=== PATIENT | female | born 1970 | race Caucasian/White ===

== ENCOUNTER 2017-09-24 14:32 | Emergency (ER) | payer BC, MEDICARE ==
[2017-09-24 14:52] VITALS: TEMP 99.2
--- NOTE | 2017-09-24 15:08 | ED.PDOC ---
History of Present Illness - General Chief Complaint: Lower Extremity Injury Stated Complaint: Left foot injury Time Seen by Provider: 09/24/17 15:05 Source: patient - History of Present Illness Initial Comments: INJURED THE LEFT FOOT, NOW C/O PAIN TO THE LEFT FIFTH TOE. Occurred: just prior to arrival Pain - Lower Extremity: moderate: Left Foot Method of Injury: twisted Improving Factors: immobilization Worsening Factors: movement Allergies/Adverse Reactions: Allergies NO KNOWN ALLERGY Allergy (Verified 11/11/13 10:19) Home Medications: Ambulatory Orders Tramadol HCl 50 mg PO Q6HRS #20 tab 09/24/17 Review of Systems - Review of Systems Constitutional: States: no symptoms reported EENTM: States: no symptoms reported Respiratory: States: no symptoms reported Cardiology: States: no symptoms reported Gastrointestinal/Abdominal: States: no symptoms reported Genitourinary: States: no symptoms reported Musculoskeletal: States: joint pain, joint swelling Skin: States: no symptoms reported Neurological: States: no symptoms reported Endocrine: States: no symptoms reported Hematologic/Lymphatic: States: no symptoms reported Past Medical History (General) - Patient Medical History Hx Seizures: No Hx Stroke: No Hx Dementia: No Hx Asthma: No Hx of COPD: No Hx Cardiac Disorders: No Hx Congestive Heart Failure: No Hx Pacemaker: No Hx Hypertension: No Hx Thyroid Disease: No Hx Diabetes: No Hx Gastroesophageal Reflux: No Hx Renal Disease: - Hx of kidney stones x 1 Hx Cancer: No Hx of HIV: No Hx Hepatitis C: No Hx MRSA: No - Vaccination History Hx Tetanus, Diphtheria Vaccination: No Hx Influenza Vaccination: No Hx Pneumococcal Vaccination: No - Social History Hx Tobacco Use: No Hx Chewing Tobacco Use: No Hx Alcohol Use: No Hx Substance Use: No Hx Substance Use Treatment: No Hx Depression: No Hx Physical Abuse: No Hx Emotional Abuse: No Hx Suspected Abuse: No - Female History Patient is a Female of Child Bearing Age (10 -59 yrs old): Yes - Pt has not had any menses since cervical ablation Patient : No Family Medical History - Family History Mother Living Status: Hx Family Cancer: Yes Hx Family;Other: muscular dystrophy, cancer; lymphoma, thyroid, RA Physical Exam - Physical Exam General Appearance: Alert, Well Developed, Well Groomed Eyes, Ears, Nose, Throat: PERRL/EOMI Neck: non-tender Cardiovascular/Respiratory: regular rate, rhythm, normal peripheral pulses, no JVD, normal breath sounds Gastrointestinal/Abdominal: non-tender, no organomegaly Back: normal inspection, no CVA tenderness, no vertebral tenderness Thigh/Hip: non-tender Leg: normal inspection Knee: normal inspection Ankle: normal inspection Foot: ecchymosis - TO THE LEFT FIFTH TOE Neuro/Tendon: normal motor functions Mental Status: alert, oriented x 3 Skin: normal color Progress - Results/Orders Results/Orders: my preliminary report of the foot x-ray: THE IS A FRACTURE OF THE PROXIMAL PHALANX OF THE LEFT 5TH TOE-MINIMALLY DISPLACED, CLOSED Departure - Departure Clinical Impression: Fracture of toe of left foot Qualifiers: Encounter type: initial encounter Toe: lesser toe Fracture type: closed Phalanx : proximal Fracture alignment: nondisplaced Qualified Code(s): S92.515A - Nondisplaced fracture of proximal phalanx of left lesser toe(s), initial encounter for closed fracture Time of Disposition: 15:42 Disposition: Discharge to Home or Self Care Condition: Good Departure Forms: ED Discharge - Pt. Copy, Patient Portal Self Enrollment Instructions: DI for Leg Pain, Toe Fracture (DC) Diet: resume usual diet Activity: increase activity as tolerated Referrals: Mnan Romeo MD [Primary Care Provider] - 1-2 Weeks Prescriptions: Tramadol HCl 50 mg PO Q6HRS #20 tab Home Medications: Ambulatory Orders Tramadol HCl 50 mg PO Q6HRS #20 tab 09/24/17
--- NOTE | 2017-09-24 15:46 | RAD ---
PROCEDURE: Foot,Left 3 Views CLINICAL HISTORY: INJURED LEFT FOOT INDICATION: Same as above COMPARISON: None . TECHNIQUE: Three Views of the left foot were done. FINDINGS: There is a nondisplaced fracture through the mid diaphysis of the proximal phalanx of the left fifth toe. There is a small plantar calcaneal spur The joint spaces are relatively well-maintained. There is no evidence of bony tarsal coalition. The soft tissues are radiographically unremarkable. There is no visualization of any radiopaque foreign bodies in the visualized soft tissues. IMPRESSION: There is a nondisplaced fracture through the mid diaphysis of the proximal phalanx of the left fifth toe. Place of interpretation: [id number]. Electronically signed by: Adal George MD 09/24/2017 3:45 PM CDT Workstation: [id number]
[2017-09-24 16:19] VITALS: BP 123/85; O2SAT 96
== END 2017-09-24 15:39 | disposition home or self-care (01) ==
LOC: ER 14:32
DX: S92.515A Nondisplaced fracture of proximal phalanx of left lesser toe(s), initial encounter for closed fracture (principal); X50.1XXA Overexertion from prolonged static or awkward postures, initial encounter; Y92.9 Unspecified place or not applicable; Y93.H2 Activity, gardening and landscaping

== ENCOUNTER → 2017-10-30 | Outpatient (CLI) | payer MEDICARE | LOC: GMAM 17:24 | PROVIDERS: ATTEND Family Medicine | DX: R10.84 Generalized abdominal pain (principal) ==

== ENCOUNTER → 2017-11-01 | Outpatient (CLI) | payer MEDICARE ==
--- NOTE | 2017-11-01 11:33 | CT ---
EXAM DESCRIPTION: Abdomen/Pelvis w/Contrast: Computed Tomography. CLINICAL HISTORY: GENERALIZED ABD PAIN COMPARISON: None. TECHNIQUE: Spiral-axial scans at 5 x 5 mm intervals through the abdomen and pelvis, after nonionic IV contrast no oral contrast. Axial 2.5 mm reconstructions. Coronal and sagittal 2.0 mm reconstructions. Delayed scans, liver through the pelvis. Axial-spiral 5mm. No adverse reactions. Total Exam DLP: 2461.08 mGy-cm. This exam was performed according to our departmental dose-optimization program which includes automated exposure control, adjustment of the mA and/or kV according to patient size and/or use of iterative reconstruction technique; to reduce radiation dose to as low as reasonably achievable (ALARA). FINDINGS: Lung bases and pleura: Negative. Liver, Stomach, Spleen, Adrenal Glands: Unremarkable. Pancreas, Gallbladder, Ducts: Negative. Kidneys and Ureters: Unremarkable. Aorta: Negative. Small Bowel: Unremarkable. Terminal Ileum/Cecum: Minimal low density and enhancement of the cecal gomes which may represent edema. Normal caliber of the terminal ileum and the appendix. Minimal increased density of the fat abutting the serosa of the cecum. Colon: The colon appears diffusely decreased in caliber with low-density seen in the gomes in most of the colonic segments with minimal enhancement of the lumen and the outer wall and serosa. Interface of the serosa and the mesentery is somewhat indistinct with increased density of the mesentery. The involved colon segments are uniformly decreased and cross-sectional diameter with decreased haustral markings. The abnormality in the colonic gomes terminates in the proximal sigmoid colon which demonstrates more gaseous distention and variability of the outer gomes. Pelvic Organs: No free fluid. Mesentery: No stranding or fascial thickening except as described above. No free air or fluid. Spine and Bony Pelvis: Anterior aspect of the superior L4 endplate is displaced anteriorly. Foraminal narrowing bilaterally L5-S1 and on the left at L4-5. Calcification and hypertrophy of the soft tissues abutting the bilateral L3 lamina posterior to the bilateral L3-4 facets. Abdominal Wall/Back Soft Tissues: Minimal fatty diastases at the umbilicus. IMPRESSION: 1. Diffuse edema involving most segments of the colon from the cecum to the proximal sigmoid colon. Overall caliber of the colon is decreased in the abnormally uniformly decreased haustral markings. Indistinctness of the outer serosa and minimal loss of inner facet with the surrounding mesentery with minimal stranding. This indicates a diffuse colonic inflammatory process, nonspecific, but can be seen with ulcerative colitis. No colonic or small bowel obstruction. Consider gastroenterology consult and/or colonoscopy. 2. Changes in the anterior L4 vertebral body and posterior calcifications around the L3-4 facets as described could indicate a prior hyperextension injury of the lumbar spine at this level. 3. No free air or free fluid. No ascites. No abscess cavities. No organomegaly. Electronically signed by: Olvin Beyer MD 11/01/2017 11:32 AM CDT
== END ==
LOC: CT 08:23
PROVIDERS: ATTEND Family Medicine
DX: R10.84 Generalized abdominal pain (principal)

== ENCOUNTER → 2017-11-06 | Outpatient (CLI) | payer MEDICARE | LOC: GMAM 16:11 | PROVIDERS: ATTEND Family Medicine | DX: R31.21 Asymptomatic microscopic hematuria (principal) ==

== ENCOUNTER 2018-01-10 08:00 | Day surgery (SDC) | payer MEDICARE ==
[~2018-01-10 08:00] MED LIST: LACTATED RINGERS 1,000 ML ONE; LIDOCAINE 1% 10 ML VIAL INJ ONE; PROPOFOL 200 MG/20 ML VIAL IV ONE; fentaNYL CITRATE INJ 50 MCG/ML AMP ONE
--- NOTE | 2018-01-10 08:54 | OP ---
DATE OF PROCEDURE: 01/10/18 PREOPERATIVE DIAGNOSIS: 1. Abnormal imaging of the gastrointestinal tract. 2. Left lower quadrant abdominal pain. POSTOPERATIVE DIAGNOSIS: 1. Sigmoid colon diverticulosis. PROCEDURE: 1. Colonoscopy, diagnostic. SURGEON: Earl Vidal MD ANESTHESIA: Monitored anesthesia care. ESTIMATED BLOOD LOSS: Less than 5 mL. COMPLICATIONS: No immediate complications. PROCEDURE: The patient was placed in the left lateral decubitus position. A time-out was performed. After deep sedation was achieved, the adult Olympus colonoscope was inserted through the anus and into the rectum and advanced to the cecum with ease under direct visualization. The terminal ileum was intubated. The cecum was identified by the ileocecal valve and the appendiceal orifice, photodocumentation of these locations was performed. The endoscope was then progressively withdrawn and the total colonic lumen evaluated. Retroflexion was performed in the rectum. The endoscope was then withdrawn and the procedure terminated. The patient tolerated the procedure well with no immediate complications. FINDINGS: 1. Mild diverticulosis characterized by small diverticula openings seen in the sigmoid colon. There was no evidence of inflammation or bleeding. 2. The colonoscopy was otherwise unremarkable to the terminal ileum. IMPRESSION: 1. Sigmoid colonic diverticulosis. RECOMMENDATIONS: 1. Okay to discharge home once the patient meets discharge criteria. 2. Restart home diet. 3. Restart home medications. 4. Repeat colonoscopy in 10 years for screening purposes. 5. Followup in GI clinic with Dr. Vidal in 3 months. #[id number] MTDD
[2018-01-10 10:20] VITALS: O2SAT 95
[2018-01-10 10:21] VITALS: BP 134/88; TEMP 96.7
== END 2018-01-10 08:40 | disposition home or self-care (01) ==
LOC: AMB 08:00
PROVIDERS: ATTEND Internal Medicine Gastroenterology
DX: R93.3 Abnormal findings on diagnostic imaging of other parts of digestive tract (principal); K57.30 Diverticulosis of large intestine without perforation or abscess without bleeding; E66.9 Obesity, unspecified; Z87.891 Personal history of nicotine dependence
CPT/HCPCS: 00811; 45378; J3010; J3490; J7120

== ENCOUNTER → 2018-01-17 | Outpatient (CLI) | payer MEDICARE | LOC: GMAM 10:29 | PROVIDERS: ATTEND Family Medicine | DX: R06.02 Shortness of breath (principal) ==

== ENCOUNTER 2018-01-21 14:29 | Emergency (ER) | payer MEDICARE ==
[2018-01-21 14:38] VITALS: O2SAT 98
[2018-01-21] MEDS ORDERED: levoFLOXacin 500 MG TAB PO ONE (14:42)
[2018-01-21] MEDS ORDERED: predniSONE 20 MG TAB PO ONE (14:42)
--- NOTE | 2018-01-21 14:44 | ED.PDOC ---
History of Present Illness - General Chief Complaint: Respiratory Problem Stated Complaint: Cough, nasal/chest congestion Time Seen by Provider: 01/21/18 14:31 Source: patient Exam Limitations: no limitations - History of Present Illness Initial Comments: the patient is a 47-year-old female presenting to the emergency room secondary to a respiratory tract infection that is been going on for around a week. The patient was started on azithromycin for 5 days ago but has only gotten progressively worse. She is not hypoxic. No history of asthma or COPD. No chest pain and no real shortness of breath. Presentation is more of a bronchitis type picture. She does have a mild runny nose. No sore throat. The cough has been significantly impairing and has caused her to throw up once or twice. Timing/Duration: unsure Severity: moderate Improving Factors: nothing Worsening Factors: nothing Associated Symptoms: cough, malaise Allergies/Adverse Reactions: Allergies NO KNOWN ALLERGY Allergy (Verified 01/21/18 14:43) Home Medications: Ambulatory Orders Albuterol Sulfate [Ventolin Hfa] 1 puff INH Q4H PRN 01/21/18 levoFLOXacin [Levaquin] 500 mg PO DAILY #5 tab 01/21/18 predniSONE [Prednisone] 20 mg PO DAILY #7 tab 01/21/18 Review of Systems - Review of Systems Constitutional: States: malaise EENTM: States: nose congestion Respiratory: States: cough Cardiology: States: no symptoms reported Gastrointestinal/Abdominal: States: vomiting Genitourinary: States: no symptoms reported Musculoskeletal: States: no symptoms reported Skin: States: no symptoms reported Neurological: States: no symptoms reported Endocrine: States: no symptoms reported All other Systems: No Change from Baseline Past Medical History (General) - Patient Medical History Hx Seizures: No Hx Stroke: No Hx Dementia: No Hx Asthma: No Hx of COPD: No Hx Cardiac Disorders: No Hx Congestive Heart Failure: No Hx Pacemaker: No Hx Hypertension: No Hx Thyroid Disease: No Hx Diabetes: No Hx Gastroesophageal Reflux: No Hx Renal Disease: - Hx of kidney stones x 1 Hx Cancer: No Hx of HIV: No Hx Hepatitis C: No Hx MRSA: No - Vaccination History Hx Tetanus, Diphtheria Vaccination: No Hx Influenza Vaccination: No Hx Pneumococcal Vaccination: No - Social History Hx Tobacco Use: No Hx Chewing Tobacco Use: No Hx Alcohol Use: No Hx Substance Use: No Hx Substance Use Treatment: No Hx Depression: No Hx Physical Abuse: No Hx Emotional Abuse: No Hx Suspected Abuse: No - Female History Patient is a Female of Child Bearing Age (10 -59 yrs old): - Pt had an endometrial ablation 2005 Patient : No Family Medical History - Family History Mother Living Status: Hx Family Cancer: Yes Hx Family;Other: muscular dystrophy, cancer; lymphoma, thyroid, RA Physical Exam - Physical Exam General Appearance: Alert, Comfortable, No apparent distress Eye Exam: bilateral normal Ears, Nose, Throat: hearing grossly normal, nasal congestion Neck: full range of motion, supple Respiratory: no respiratory distress, no accessory muscle use, rhonchi Cardiovascular/Chest: normal peripheral pulses, regular rate, rhythm, no edema Peripheral Pulses: radial,right: 2+, radial,left: 2+ Gastrointestinal/Abdominal: non tender - obese, soft Rectal Exam: deferred Back Exam: normal inspection, no CVA tenderness, no vertebral tenderness Extremity: non-tender, normal inspection, no pedal edema, normal capillary refill 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 Her primary care doctor had already placed her on azithromycin and had already done a chest x-ray several days ago. Due to failure to improve on the current medications, we are going to switch her over to Levaquin for 5 days in case there is a resistant bacterial infection and add prednisone primarily for anti- inflammatory effect, to aid in reducing the very symptomatic cough. She does need to continue her breathing treatments as prescribed by her primary care doctor. She can additionally take [id number] Zyrtec-D twice daily for the next 3 or 4 days as well for symptomatic relief. I do want her to follow back up with her primary care doctor in a couple of days for reevaluation to make sure that she is improving. there is no hypoxia or respiratory distress, and vital signs are reassuring. ER warnings were given. First doses of the Levaquin and prednisone are given here tonight. Departure - Departure Clinical Impression: Acute bronchitis Qualifiers: Bronchitis organism: unspecified organism Qualified Code(s): J20.9 - Acute bronchitis, unspecified Disposition: Discharge to Home or Self Care Condition: Fair Departure Forms: ED Discharge - Pt. Copy, Patient Portal Self Enrollment Instructions: DI for Pneumonia -- Adult Diet: regular diet Activity: increase activity as tolerated Referrals: James Norris MD [Primary Care Provider] - 1-2 Weeks Prescriptions: levoFLOXacin [Levaquin] 500 mg PO DAILY #5 tab predniSONE [Prednisone] 20 mg PO DAILY #7 tab Home Medications: Ambulatory Orders Albuterol Sulfate [Ventolin Hfa] 1 puff INH Q4H PRN 01/21/18 levoFLOXacin [Levaquin] 500 mg PO DAILY #5 tab 01/21/18 predniSONE [Prednisone] 20 mg PO DAILY #7 tab 01/21/18 Additional Instructions: the patient is a 47-year-old female presenting to the emergency room secondary to worsening symptoms of her respiratory tract infection. Her primary care doctor had already placed her on azithromycin and had already done a chest x-ray several days ago. Due to failure to improve on the current medications, we are going to switch her over to Levaquin for 5 days in case there is a resistant bacterial infection and add prednisone primarily for anti- inflammatory effect, to aid in reducing the very symptomatic cough. She does need to continue her breathing treatments as prescribed by her primary care doctor. She can additionally take [id number] Zyrtec-D twice daily for the next 3 or 4 days as well for symptomatic relief. I do want her to follow back up with her primary care doctor in a couple of days for reevaluation to make sure that she is improving. there is no hypoxia or respiratory distress, and vital signs are reassuring. ER warnings were given. First doses of the Levaquin and prednisone are given here tonight.
[2018-01-21 15:01] VITALS: BP 117/82; TEMP 98.8
== END 2018-01-21 15:00 | disposition home or self-care (01) ==
LOC: ER 14:29
DX: J20.9 Acute bronchitis, unspecified (principal)

== ENCOUNTER 2018-03-14 05:42 | Emergency (ER) | payer MEDICARE ==
[2018-03-14 06:19] VITALS: TEMP 99.9; O2SAT 97
[2018-03-14] MEDS ORDERED: ONDANSETRON ODT 8 MG TAB SL ONE (06:31)
[2018-03-14] MEDS ORDERED: cefTRIAXone SODIUM 1 GM VIAL IM ONE (06:31)
[2018-03-14] MEDS ORDERED: CIPROFLOXACIN 500 MG TAB PO ONE (06:31)
--- NOTE | 2018-03-14 06:37 | ED.PDOC ---
History of Present Illness - General Chief Complaint: Problem Stated Complaint: pain with urination Time Seen by Provider: 03/14/18 05:47 Source: patient Exam Limitations: no limitations - History of Present Illness Initial Comments: the patient is a 47-year-old female presenting to the emergency room secondary to symptoms of urinary tract infection for the last 2-3 days. Symptoms include some generalized low back pain along with urinary frequency and significant dysuria. No definite fevers. She did have a couple of episodes of vomiting earlier in the morning. No syncope or near syncope. Her primary care doctor is out of town. Timing/Duration: other - 3 days Severity: moderate Improving Factors: nothing Worsening Factors: nothing Associated Symptoms: malaise, nausea/vomiting Allergies/Adverse Reactions: Allergies NO KNOWN ALLERGY Allergy (Verified 01/21/18 14:43) Home Medications: Ambulatory Orders Albuterol Sulfate [Ventolin Hfa] 1 puff INH Q4H PRN 01/21/18 levoFLOXacin [Levaquin] 500 mg PO DAILY #5 tab 01/21/18 predniSONE [Prednisone] 20 mg PO DAILY #7 tab 01/21/18 Ciprofloxacin [Cipro] 500 mg PO BID #14 tab 03/14/18 Famotidine 20 mg PO DAILY #14 tab 03/14/18 Ondansetron [Zofran Odt] 4 mg PO Q4H PRN #10 tab 03/14/18 Review of Systems - Review of Systems Constitutional: States: malaise EENTM: States: no symptoms reported Respiratory: States: no symptoms reported Cardiology: States: no symptoms reported Gastrointestinal/Abdominal: States: abdominal pain - lower Genitourinary: States: dysuria, frequency, pain Musculoskeletal: States: back pain Skin: States: no symptoms reported Neurological: States: no symptoms reported Endocrine: States: no symptoms reported All other Systems: No Change from Baseline Past Medical History (General) - Patient Medical History Hx Seizures: No Hx Stroke: No Hx Dementia: No Hx Asthma: No Hx of COPD: No Hx Cardiac Disorders: No Hx Congestive Heart Failure: No Hx Pacemaker: No Hx Hypertension: No Hx Thyroid Disease: No Hx Diabetes: No Hx Gastroesophageal Reflux: No Hx Renal Disease: - Hx of kidney stones x 1 Hx Cancer: No Hx of HIV: No Hx Hepatitis C: No Hx MRSA: No Surgical History: other - Vaccination History Hx Tetanus, Diphtheria Vaccination: No Hx Influenza Vaccination: No Hx Pneumococcal Vaccination: No - Social History Hx Tobacco Use: No Hx Chewing Tobacco Use: No Hx Alcohol Use: No Hx Substance Use: No Hx Substance Use Treatment: No Hx Depression: No Hx Physical Abuse: No Hx Emotional Abuse: No Hx Suspected Abuse: No - Female History Patient is a Female of Child Bearing Age (10 -59 yrs old): Yes Patient : No Family Medical History - Family History Mother Living Status: Hx Family Cancer: Yes Hx Family;Other: muscular dystrophy, cancer; lymphoma, thyroid, RA Physical Exam - Physical Exam General Appearance: Alert, Comfortable, No apparent distress Eye Exam: bilateral normal Ears, Nose, Throat: hearing grossly normal, normal ENT inspection, normal pharynx Neck: full range of motion, supple Respiratory: lungs clear, normal breath sounds, no respiratory distress, no accessory muscle use Cardiovascular/Chest: normal peripheral pulses, no edema, tachycardia - mild Peripheral Pulses: radial,right: 2+, radial,left: 2+ Gastrointestinal/Abdominal: non tender, soft Rectal Exam: deferred Back Exam: no CVA tenderness, no vertebral tenderness Extremity: non-tender, normal inspection, no pedal edema, normal capillary refill 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 Urine is being cultured. The patient was given a dose of Rocephin and ciprofloxacin here. She is going to be placed on ciprofloxacin for 7 days twice daily. Additionally she is going to be written for Zofran for as needed use to control any nausea and vomiting and some Pepcid to help reduce stomach acid for the next week or so. She needs to keep herself well hydrated and eat a bland diet. Motrin can be used with food to help reduce inflammation and irritation of the bladder. Keep follow-up with primary care doctor next week. ER warnings were given. Departure - Departure Clinical Impression: Cystitis Gastritis Qualifiers: Gastritis type: other gastritis Chronicity: acute Gastritis bleeding: without bleeding Qualified Code(s): K29.00 - Acute gastritis without bleeding Disposition: Discharge to Home or Self Care Condition: Fair Departure Forms: ED Discharge - Pt. Copy, Patient Portal Self Enrollment Instructions: DI for Urinary Tract Infection (UTI) Diet: bland diet Activity: increase activity as tolerated Referrals: James Norris MD [Primary Care Provider] - 1-5 Days Prescriptions: Ciprofloxacin [Cipro] 500 mg PO BID #14 tab Famotidine 20 mg PO DAILY #14 tab Ondansetron [Zofran Odt] 4 mg PO Q4H PRN #10 tab PRN Reason: Vomiting Home Medications: Ambulatory Orders Albuterol Sulfate [Ventolin Hfa] 1 puff INH Q4H PRN 01/21/18 levoFLOXacin [Levaquin] 500 mg PO DAILY #5 tab 01/21/18 predniSONE [Prednisone] 20 mg PO DAILY #7 tab 01/21/18 Ciprofloxacin [Cipro] 500 mg PO BID #14 tab 03/14/18 Famotidine 20 mg PO DAILY #14 tab 03/14/18 Ondansetron [Zofran Odt] 4 mg PO Q4H PRN #10 tab 03/14/18 Additional Instructions: the patient is a 47-year-old female presenting with an acute cystitis and associated gastritis. Urine is being cultured. The patient was given a dose of Rocephin and ciprofloxacin here. She is going to be placed on ciprofloxacin for 7 days twice daily. Additionally she is going to be written for Zofran for as needed use to control any nausea and vomiting and some Pepcid to help reduce stomach acid for the next week or so. She needs to keep herself well hydrated and eat a bland diet. Motrin can be used with food to help reduce inflammation and irritation of the bladder. Keep follow-up with primary care doctor next week. ER warnings were given.
[2018-03-14 07:10] VITALS: BP 121/91
== END 2018-03-14 06:55 | disposition home or self-care (01) ==
LOC: ER 05:42
DX: N30.90 Cystitis, unspecified without hematuria (principal); K29.00 Acute gastritis without bleeding; Z87.442 Personal history of urinary calculi
CPT/HCPCS: 36415; 81001; 87086; J0696

== ENCOUNTER → 2018-03-21 | Outpatient (CLI) | payer MEDICARE | LOC: GMAM 10:39 | PROVIDERS: ATTEND Family Medicine | DX: R94.5 Abnormal results of liver function studies (principal) ==

== ENCOUNTER → 2018-06-22 | Outpatient (CLI) | payer MEDICARE ==
--- NOTE | 2018-06-24 20:57 | MRI ---
EXAM DESCRIPTION: MRI Lumbar Spine w/o Contrast CLINICAL HISTORY: 48 years Female LOW BACK PAIN TECHNIQUE: Multiplanar, multisequential images of the lumbar spine were obtained without the administration of intravenous contrast. COMPARISON: No prior exams provided for comparison. FINDINGS: There is no acute lumbar fracture or spondylolisthesis. There is mild multilevel degenerative disc disease with mild to moderate multilevel facet arthrosis to be discussed below. The pedicles appear short, suggestive of congenital lumbar stenosis. The visualized spinal cord is normal with the conus terminating at the L1 level. No epidural collection. No visualized retroperitoneal or paraspinal soft tissue abnormalities. At L1-L2, there is no central canal or neural foraminal stenosis. At L2-L3, there is mild to moderate bilateral facet arthrosis with thickening of the ligamentum flavum. Slight central canal narrowing without neural foraminal stenosis. At L3-L4, there is a mild diffuse disc bulge with moderate bilateral facet arthrosis and thickening of the ligamentum flavum. There is moderate central canal stenosis with minimal right and mild left neural foraminal stenosis. At L4-L5, there is a moderate diffuse disc bulge with a right paracentral annular tear. Moderate bilateral facet arthrosis with thickening of the ligamentum flavum. Severe central canal stenosis with CSF effacement. The central canal measures 5 mm in AP dimension. Mild right and mild to moderate left neural foraminal stenosis. At L5-S1, there is a mild diffuse disc bulge with a superimposed central disc protrusion. Moderate bilateral facet arthrosis with thickening of the ligamentum flavum. Severe central canal stenosis with the central canal measuring 6 mm in AP dimension. Mild bilateral neural foraminal stenosis. IMPRESSION: No acute lumbar spine injury. Multilevel degenerative changes superimposed upon congenital lumbar stenosis. Severe central canal stenosis at L4-L5 and L5-S1. Electronically signed by: Chiara Warren MD 06/24/2018 8:55 PM CDT
== END ==
LOC: MRI 13:47
PROVIDERS: ATTEND Family Medicine
DX: M51.16 Intervertebral disc disorders with radiculopathy, lumbar region (principal); Q76.49 Other congenital malformations of spine, not associated with scoliosis

== ENCOUNTER → 2019-12-02 | Outpatient (CLI) | payer MEDICARE | LOC: GMAM 17:14 | PROVIDERS: ATTEND Family Medicine | DX: E55.9 Vitamin D deficiency, unspecified (principal) ==

== ENCOUNTER → 2020-01-02 | Outpatient (CLI) | payer MEDICARE | LOC: GMAM 10:05 | PROVIDERS: ATTEND Family Medicine | DX: E83.52 Hypercalcemia (principal); I10 Essential (primary) hypertension ==